=== PATIENT | female | born 1985 | race Two or more races ===

== ENCOUNTER 2025-03-31 04:01 | Emergency (ER) | payer MEDICAID, SELFPAY ==
[2025-03-31 04:02] VITALS: BMI 31.1
[2025-03-31 04:15] VITALS: BP 122/77; PULSE 99; RESP 19; TEMP 36.8; O2SAT 99
--- NOTE | 2025-03-31 04:22 | XR_ITS ---
Examination: PA lateral chest 2 views TECHNIQUE: Upright PA lateral chest 2 views Date and time: March 31, 2025, 0500 hours INDICATIONS: Coughing chest tightness this week FINDINGS: Opacity in the left perihilar left upper lobe region most consistent with pneumonia Normal heart size Right lung clear. IMPRESSION: Findings most consistent with left lung pneumonia, follow-up imaging recommended to document clearing
--- NOTE | 2025-03-31 04:23 | PD.EDRME ---
Rapid Medical Screening Exam E Arrival date/time: 03/31/25 04:01 39F with no significant PMH presents to ED with 3 days of cough and some CP when coughing. Chief Complaint: Flu Like Symptoms Vital signs: Vital Signs Temperature 98.2 F 03/31/25 04:15 Pulse Rate 99 03/31/25 04:15 Respiratory Rate 19 03/31/25 04:15 Blood Pressure 122/77 03/31/25 04:15 Pulse Oximetry (%) 99 03/31/25 04:15 Oxygen Delivery Method Room Air 03/31/25 04:15
--- NOTE | 2025-03-31 08:11 | EDNOTE_ITS ---
Upper Respiratory Inf. RME/HPI General Chief Complaint: Flu Like Symptoms Stated Complaint: COUGH, CHEST THIGHTNESS SINCE FRIDAY Time Seen by Provider: 03/31/25 06:46 Source: patient Arrival date/time: 03/31/25 04:01 39-year-old female with no known medical history presents to the emergency room with a chief complaint of 3 days of coughing. Mode of arrival: ambulatory Limitations: no limitations RME / HPI RME / HPI Narrative: 03/31/25 04:01 39F with no significant PMH presents to ED with 3 days of cough and some CP when coughing. Related Data Previous Rx's ?Medication ?Instructions ?Recorded meclizine 12.5 mg tablet 12.5 mg PO TID PRN vertigo # 30 tabs 03/03/19 promethazine 12.5 mg tablet 12.5 mg PO Q6H PRN nausea and 03/03/19 vomiting #20 tabs acetaminophen 300 mg-codeine 30 mg 1 tab PO Q8H PRN pa in #10 tabs 09/23/19 tablet amoxicillin 500 mg capsule 500 mg PO BID #20 caps 08/28 06/14 acetaminophen 650 mg 650 mg PO Q8H PRN fever or p ain 08/12/23 tablet,extended release (Tylenol 8 #30 tabs Hour) dextromethorphan-guaifenesin 5 10 ml PO Q8H PRN cough #180 mL 08/12/23 mg-100 mg/5 mL oral liquid ibuprofen 600 mg tablet 600 mg PO Q8H PRN fever or p ain 08/12/23 #30 tabs nirmatrelvir 300 mg (150 mg See Rx Instructions PO .CO MPLEX 08/12/23 x2)-ritonavir 100 mg tablet,dose #30 tabs pack (Paxlovid) albuterol sulfate 90 mcg/actuation 2 puff inhalation Q 6H PRN 03/31/25 aerosol inhaler (Ventolin HFA) shortness of breath or wheezing #6.7 grams amoxicillin 875 mg-potassium 1 tab PO BID 7 days #14 t abs 03/31/25 clavulanate 125 mg tablet prednisone 10 mg tablet 30 mg PO BID 3 days #18 tabs 03/31/25 Allergies Allergy/AdvReac Type Severity Reaction Status Date / Time No Known Allergies Allergy Verified 03/31/25 04:02 Review of Systems Review of Systems Systems Reviewed: All systems reviewed, normal except as documented Constitutional Constitutional: Reports system reviewed and no additional complaints, except as documented, Denies fatigue, Denies fever(s), Denies headache(s) and Denies weakness Eyes Eyes: Reports system reviewed and no additional complaints, except as documented, Denies blurry vision and Denies change in vision ENT Ears, Nose, Mouth, and Throat: Reports system reviewed and no additional complaints, except as documented, Denies otalgia, Denies headache(s), Denies nasal congestion, Denies throat swelling and Denies vertigo Cardiovascular Cardiovascular: Reports system reviewed and no additional complaints, except as documented, Denies chest pain, Reports dyspnea and Denies dyspnea on exertion Respiratory Respiratory: Reports system reviewed and no additional complaints, except as documented, Reports chest congestion, Reports cough, Reports dyspnea, Denies dyspnea on exertion and Denies wheezing Gastrointestinal Gastrointestinal: Reports system reviewed and no additional complaints, except as documented, Denies abdominal pain, Denies cramping, Denies nausea and Denies vomiting Genitourinary Genitourinary: Reports system reviewed and no additional complaints, except as documented Musculoskeletal Musculoskeletal: Reports system reviewed and no additional complaints, except as documented and Denies back pain Integumentary/Breasts Skin/Breast: Reports system reviewed and no additional complaints, except as documented and Denies wounds Neurologic Neurologic: Reports system reviewed and no additional complaints, except as documented, Denies confusion, Denies headache(s), Denies lack of coordination, Denies vertigo and Denies weakness Psychiatric Psychiatric: Reports system reviewed and no additional complaints, except as documented, Denies anxiety, Denies confusion, Denies depression, Denies paranoia, Denies suicidal ideation and Denies tactile hallucinations Endocrine Endocrine: Reports system reviewed and no additional complaints, except as documented and Denies fatigue Hematologic/Lymphatic Hematologic/Lymphatic: Reports system reviewed and no additional complaints, except as documented and Denies lymphadenopathy Allergic/Immunologic Allergic/Immunologic: Reports system reviewed and no additional complaints, except as documented, Denies throat swelling, Denies urticaria and Denies wheezing Past Medical History Past Medical History CARDIAC: Negative Congestive Heart Failure RESPIRATORY: Negative Chronic Obstructive Pulmonary Disease (COPD) GENITOURINARY: Negative Renal Disease ENDOCRINE: Negative Diabetes Mellitus Type 1 or Diabetes Mellitus Type 2 Social History SMOKING STATUS: Never smoker ED Exam General Limitations: Present no limitations General appearance: Present alert and in no apparent distress Head Head exam: Present atraumatic Eye Eye exam: Present normal appearance, PERRL and EOMI ENT ENT exam: Present normal exam, normal oropharynx and mucous membranes moist Neck Neck exam: Present normal inspection, full ROM and trachea midline Chest Chest inspection: Present normal inspection and symmetric chest wall rise Respiratory Respiratory exam: Present normal lung sounds bilaterally; Absent respiratory distress, wheezes, stridor, accessory muscle use or prolonged expiratory phase Cardiovascular Cardiovascular exam: Present regular rate, normal rhythm and normal heart sounds Abdominal Exam Abdominal exam: Present soft and normal bowel sounds Extremities Exam Extremities exam: Present normal inspection and full ROM Back Exam Back exam: Present normal inspection and full ROM Neurological Exam Neurological exam: Present alert, oriented X3 and CN II-XII intact Psychiatric Psychiatric exam: Present normal affect and normal mood Skin Skin exam: Present warm, dry, intact and normal color Course Quality Measures none Orders Category Date Time Status Bedside COVID-19 Antigen Test NOW Care 03/31/25 04:22 Active Bedside Influenza A&B Antigen Test NOW Care 03/31/25 04:22 Completed XR chest 2V Stat Exams 03/31/25 04:22 Completed Vital Signs Vital signs: Vital Signs Temperature 98.2 F 03/31/25 04:15 Pulse Rate 99 03/31/25 04:15 Respiratory Rate 19 03/31/25 04:15 Blood Pressure 122/77 03/31/25 04:15 Pulse Oximetry (%) 99 03/31/25 04:15 Oxygen Delivery Method Room Air 03/31/25 04:15 Upper Respiratory Infection MDM Narrative MDM Narrative:: 39-year-old female with no known medical history presents to the emergency room with a chief complaint of 3 days of coughing. Patient data External records reviewed:: [facility] previous records Clinical information provided by:: patient Social determinants that could affect healthcare access:: none Patient has the following chronic illnesses:: No chronic illness How is presenting disease/condition affected by chronic disease/condition?: no chronic disease Evaluation data The following diagnostics were reviewed and interpreted by me:: lab results and radiology exam(s) Lab and/or radiology exams considered but not ordered:: Labs and radiology exams considered and ordered Interpretation Summary: Chest [id number]: Opacity in the left perihilar left upper lobe region most consistent with pneumonia Normal heart size Right lung clear. IMPRESSION: Findings most consistent with left lung pneumonia, follow-up imaging recommended to document clearing Medications / Prescriptions Medications or Prescriptions considered but not ordered:: Medication given Medication administrations:: Rx given Consultations Consultation(s) initiated? (list below): No Diagnosis Upper Respiratory Differential Diagnosis: upper respiratory infection, sinusitis, viral infection, bronchitis, influenza and other Most likely diagnosis given after review of the tests above:: Community-acquired pneumonia Admission Indicated Admission indicated?: not indicated Admission Request Was there a request for admission?: No Disposition Plan Disposition Plan: Discharge Discharge Attestation Discharge Attestation: The patient and all family members were given an opportunity to ask questions and understood the discharge instructions. Discharge instructions specifically effects, indications for sooner follow up or return to the emergency department, and the expected course of current diagnosis. Patient condition: Stable Discharge Plan Plan Patient Disposition: HOME (Self Care) Discharge Disposition comment: Stable Prescriptions/Referrals Prescriptions/Med Rec: New albuterol sulfate [Ventolin HFA] 90 mcg/actuation HFA aerosol inhaler 2 puff inhalation Q6H PRN (Reason: shortness of breath or wheezing) Qty: 6.7 0RF amoxicillin-pot clavulanate 875-125 mg tablet 1 tab PO BID 7 Days Qty: 14 0RF prednisone 10 mg tablet 30 mg PO BID 3 Days Qty: 18 0RF Taper: Prednisone Taper 20 mg DAILY for 2 Days and 0 Hour 10 mg DAILY for 2 Days and 0 Hour 5 mg DAILY for 7 Days and 0 Hour No Action amoxicillin 500 mg capsule 500 mg PO BID Qty: 20 0RF acetaminophen-codeine 300-30 mg tablet 1 tab PO Q8H PRN (Reason: pain) Qty: 10 0RF promethazine 12.5 mg tablet 12.5 mg PO Q6H PRN (Reason: nausea and vomiting) Qty: 20 0RF meclizine 12.5 mg tablet 12.5 mg PO TID PRN (Reason: vertigo) Qty: 30 0RF dextromethorphan-guaifenesin 5-100 mg/5 mL liquid 10 ml PO Q8H PRN (Reason: cough) Qty: 180 0RF ibuprofen 600 mg tablet 600 mg PO Q8H PRN (Reason: fever or pain) Qty: 30 0RF acetaminophen [Tylenol 8 Hour] 650 mg tablet extended release 650 mg PO Q8H PRN (Reason: fever or pain) Qty: 30 0RF Paxlovid 300 mg (150 mg x 2)-100 mg tablets,dose pack See Rx Instructions .ROUTE .COMPLEX Qty: 30 0RF Rx Instructions: take TWO 150 mg tablets of nirmatrelvir with ONE 100 mg tablet of ritonavir twice daily for 5 days Referrals: Kole Hartley MD [Primary Care Provider] - In 1 week Problem List Clinical Impression: Community acquired pneumonia Patient/Caregiver Discharge Instructions Education Materials: What Is Pneumonia?, Treating Pneumonia, ED Pneumonia (Adult) Additional Instructions: Please follow-up with your primary care provider in the next 24 to 48 hours Your chest x-ray showed community-acquired pneumonia. Antibiotics were sent to your pharmacy please pick them up and take them as indicated For any evidence of worsening signs or symptoms return to the emergency room immediately Print Language: Wallisian Stand Alone Forms: Laura Award Info., Work/School Release, Patient Portal Info Letter RAYMON/MIGUELITO Supervising Physician RAYMON/MIGUELITO Supervising Physician: Dr Braga
== END 2025-03-31 08:46 | disposition home or self-care (01) ==
PROVIDERS: Emergency Provider Emergency Medicine; PCP Family Medicine
DX: J18.9 Pneumonia, unspecified organism (principal)
CPT/HCPCS: 71046; 87400; 87811; 99283